=== PATIENT | male | born 1930 | race Caucasian/White ===

== ENCOUNTER 2016-05-31 03:27 | Emergency (ER) | payer OTHER, MEDICARE ==
[2016-05-31 03:36] VITALS: TEMP 97.7; BMI 32.3
--- NOTE | 2016-05-31 03:46 | PDOC ---
History of Present Illness - General Chief Complaint: Nasal Bleeding Stated Complaint: NOSEBLEED Time Seen by Provider: 05/31/16 03:31 History Source: Patient Exam Limitations: No Limitations - History of Present Illness Initial Comments: 05/31/16 03:40 85 y m htn nose bleeding on and off since 10 pm last night. no head ache, n/v. no abd pain. no hematuria or hematochezia. not on blood thinners. in ed htn but in nad. no active bleeding 05/31/16 03:42 Past History - Past Medical History Allergies/Adverse Reactions: Allergies Allergy/AdvReac Type Severity Reaction Status Date / Time Penicillins Allergy Verified 10/31/15 22:38 Home Medications: Ambulatory Orders Allopurinol [Zyloprim -] 150 mg PO DAILY 10/31/15 Amlodipine Besylate 10 mg PO DAILY 10/31/15 Hydrochlorothiazide [Hctz -] 25 mg PO DAILY 10/31/15 Potassium Chloride 20 meq PO DAILY 10/31/15 Simvastatin 40 mg PO HS 10/31/15 Clonidine HCl [Catapres -] 0.1 mg PO BID tablet 11/04/15 Docusate Sodium [Colace -] 100 mg PO TID #120 capsule 11/04/15 HTN: Yes Kidney Stones: Yes - Surgical History Orthopedic Surgery: Yes (knee arthroscopy, lumbar back sx) - Psycho/Social/Smoking Cessation Hx Suicidal Ideation: No Smoking History: Former smoker Have you smoked in the past 12 months: No Information on smoking cessation initiated: No Hx Alcohol Use: Yes (occasional) Drug/Substance Use Hx: No Substance Use Type: None Hx Substance Use Treatment: No Review of Systems - Review of Systems Able to Perform ROS?: Yes Is the patient limited Greek proficient: No Constitutional: No: Symptoms Reported HEENTM: Yes: Symptoms Reported, See HPI Respiratory: No: Symptoms reported Cardiac (ROS): No: Symptoms Reported Neurological: No: Symptoms reported All Other Systems: Reviewed and Negative *Physical Exam - Vital Signs Last Vital Signs Temp Pulse Resp BP Pulse Ox 97.7 F 84 18 183/92 98 05/31/16 03:34 05/31/16 03:34 05/31/16 03:34 05/31/16 03:34 05/31/16 03:34 - Physical Exam General Appearance: Yes: Nourished, Appropriately Dressed. No: Apparent Distress HEENT: positive: Normal ENT Inspection, Other (area of bleeding lt nostril localized and cautherized w/ silver nitrate) Respiratory/Chest: positive: Lungs Clear. negative: Respiratory Distress Cardiovascular: positive: Regular Rhythm, Regular Rate Gastrointestinal/Abdominal: positive: Soft. negative: Tender Neurologic: positive: Fully Oriented, Alert, Normal Mood/Affect, Normal Response , Motor Strength 5/5 *DC/Admit/Observation/Transfer Diagnosis at time of Disposition: Epistaxis - Discharge Dispostion Disposition: HOME Condition at time of disposition: Improved - Patient Instructions Additional Instructions: KEEP HEAD ELEVATED WHILE LYING DOWN AT LEAST 30 DEGREES DO NOT BEND OVER OR LOWER YOUR HEAD DO NOT RUB, BLOW, OR PICK YOUR NOSE PINCH NOSE INSTRUCTED FOR 20 MIN CONSTANT, IF BLEEDING RECURS IF IT DOES STOP, RETURN TO ER SEE YOUR DOCTOR THIS WEEK
[2016-05-31 04:06] VITALS: BP 145/85; PULSE 75
== END 2016-05-31 04:09 | disposition home or self-care (01) ==
LOC: FER 03:27
DX: R04.0 Epistaxis (principal); Z87.891 Personal history of nicotine dependence; I10 Essential (primary) hypertension; Z87.442 Personal history of urinary calculi
CPT/HCPCS: 99281-25

== ENCOUNTER 2018-07-05 11:15 | Emergency (ER) | payer OTHER, MEDICARE ==
[2018-07-05 11:25] VITALS: TEMP 97.4; BMI 31.5
[2018-07-05] MEDS ORDERED: ONDANSETRON *ODT* 4 MG TABLET SL ONE ×2 (11:42→12:50)
[2018-07-05] MEDS ORDERED: MECLIZINE HCL 25 MG TABLET (FP) PO ONE ×2 (11:42→12:50)
--- NOTE | 2018-07-05 11:42 | PDOC ---
History of Present Illness - General Chief Complaint: Lightheaded Stated Complaint: DIZZY, "VERTIGO" Time Seen by Provider: 07/05/18 11:18 - History of Present Illness Initial Comments: 07/05/18 13:05 Chief complaint: Dizziness History of present illness: Patient states that this morning while in bed, he rolled over and suddenly experienced a spinning sensation. When he arose, he experienced nausea, an exacerbation of the spinning. He was able to ambulate, however, without significant ataxia. Symptoms have persisted intermittently, especially with change of position Review of systems: Denies recent URI symptoms, earache, change in hearing, or tinnitus. He wears hearing aids bilaterally for significant hearing loss. Denies chest pain, shortness of breath, abdominal pain, diarrhea, visual or focal neurologic symptoms, unsteadiness of gait. Remainder systems reviewed and negative Past medical history: One similar episode of vertigo several years ago, resolved spontaneously. Gout. High blood pressure. Elevated cholesterol. Controlled on allopurinol, amlodipine, hydrochlorothiazide, potassium, clonidine , and simvastatin. Social history: No tobacco alcohol or drugs. Ambulatory and without significant disability. Lives with his who is healthy. Family history: Reviewed and noncontributory including early coronary artery disease, metabolic disease including diabetes, cancer, neurologic diseases Physical exam: Alert oriented 3 well-developed well-nourished no acute distress at rest, but vertigo precipitated with head movement and change of positions. Afebrile, vital signs normal Head atraumatic. PERRLA 3 mm, fundi benign with sharp disc margins and good central venous pulsations Ears clear by hearing is diminished without hearing aids, intact with aids in place. Throat clear Neck supple without bruit mass or nodes Lungs clear to P&A, full breath sounds bilaterally, no wheezes rales or rhonchi CV S1 and S2 distant without murmur rub or gallop pulses full and symmetric no JVD or edema no bruits 90 and regular Abdomen soft nontender without mass or organomegaly. Bowel sounds normal. Neurological: C2 to 12 intact except for chronic hearing loss. Strength full and symmetric. No focal sensory or motor deficits. Gait stable and unimpaired. Cerebellar function intact Impression: Vertigo, probably of urinary origin, no sign of TIA/CVA Plan: Symptomatic treatment and observation. Further evaluation depending on response to therapy. Past History - Past Medical History Allergies/Adverse Reactions: Allergies Allergy/AdvReac Type Severity Reaction Status Date / Time Penicillins Allergy Verified 07/05/18 11:17 Home Medications: Ambulatory Orders Allopurinol [Zyloprim -] 150 mg PO DAILY 10/31/15 Amlodipine Besylate 10 mg PO DAILY 10/31/15 Hydrochlorothiazide [Hctz -] 12.5 mg PO DAILY 10/31/15 Potassium Chloride 20 meq PO DAILY 10/31/15 Simvastatin 20 mg PO HS 10/31/15 cloNIDine HCL [Catapres -] 0.1 mg PO BID tablet 11/04/15 Ascorbic Acid [Vitamin C with Eliza Hips] 1,000 mg PO DAILY 07/05/18 Cholecalciferol (Vitamin D3) [Vitamin D3] 1,000 unit PO DAILY 07/05/18 Glucosamine/MSM/Chondroitin A [Triple Flex Caplet] 1 each PO DAILY 07/05/18 Losartan Potassium 100 mg PO DAILY 07/05/18 Meclizine HCl 1 - 2 tab PO TID PRN #20 tablet 07/05/18 Multivit with Iron,Minerals [Complete Senior] 1 each PO DAILY 07/05/18 Natural Fish Oil Concentrate 1,000 mg PO DAILY 07/05/18 Ondansetron [Zofran Odt -] 4 mg SL TID PRN #15 od.tablet 07/05/18 COPD: No HTN: Yes Hypercholesterolemia: Yes Kidney Stones: Yes Other medical history: H/O VERTIGO - Surgical History Orthopedic Surgery: Yes (knee arthroscopy, lumbar back sx) - Suicide/Smoking/Psychosocial Hx Smoking History: Former smoker Have you smoked in the past 12 months: No Information on smoking cessation initiated: No Hx Alcohol Use: (social) Drug/Substance Use Hx: No Substance Use Type: None Hx Substance Use Treatment: No *Physical Exam - Vital Signs Last Vital Signs Temp Pulse Resp BP Pulse Ox 97.4 F L 84 18 152/90 97 07/05/18 11:15 07/05/18 11:15 07/05/18 11:15 07/05/18 11:15 07/05/18 11:15 Medical Decision Making - Medical Decision Making 07/05/18 14:32 Patient much improved after treatment with Zofran and meclizine. Nausea has resolved. No further retching. Vertigo is no longer present and he is able to arise from a seated position and ambulate without symptoms. Neurological exam remains intact Discharged with his to follow-up with primary physician. Continue medication as needed. Return to ER if symptoms worsen or further symptoms develop *DC/Admit/Observation/Transfer Diagnosis at time of Disposition: Vertigo - Discharge Dispostion Disposition: HOME Condition at time of disposition: Improved Decision to Admit order: No - Prescriptions Prescriptions: Meclizine HCl 1 - 2 tab PO TID PRN #20 tablet PRN Reason: Vertigo Ondansetron [Zofran Odt -] 4 mg SL TID PRN #15 od.tablet PRN Reason: Nausea - Referrals Referrals: Bc Dove MD [Primary Care Provider] - 3 days - Patient Instructions Printed Discharge Instructions: DI for Vertigo Additional Instructions: Return to ER if symptoms worsen or if any additional symptoms develop. Otherwise follow-up primary physician. - Post Discharge Activity
[2018-07-05] MEDS ORDERED: MECLIZINE HCL 25 MG TABLET (FP) ONE ×2 (11:43→12:53)
[2018-07-05] MEDS ORDERED: ONDANSETRON *ODT* 4 MG TABLET ONE ×2 (11:43→12:52)
[2018-07-05 14:19] VITALS: BP 133/75; PULSE 79
== END 2018-07-05 14:20 | disposition home or self-care (01) ==
LOC: FER 11:15
DX: R42 Dizziness and giddiness (principal); I10 Essential (primary) hypertension; E78.00 Pure hypercholesterolemia, unspecified; M10.9 Gout, unspecified
CPT/HCPCS: 99283-25; Q0162